=== PATIENT | female | born 2000 | race Caucasian/White ===

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

== ENCOUNTER 2020-06-02 13:09 | Emergency (ER) | payer OTHER, SELFPAY ==
--- NOTE | 2020-06-02 13:49 | RAD ---
2 view chest: [06/02/2020] Comparison:None available HISTORY: Chest pain FINDINGS: Heart and mediastinal contours are grossly unremarkable. No pneumothorax or pleural fluid. No focal consolidation or alveolar edema. IMPRESSION: No acute findings.
== END 2020-06-02 13:50 | disposition home or self-care (01) ==
LOC: BURERS 13:09
DX: S43.402A Unspecified sprain of left shoulder joint, initial encounter (principal); S80.02XA Contusion of left knee, initial encounter; F41.9 Anxiety disorder, unspecified; F32.9 Major depressive disorder, single episode, unspecified; F43.10 Post-traumatic stress disorder, unspecified; V89.2XXA Person injured in unspecified motor-vehicle accident, traffic, initial encounter
CPT/HCPCS: 71046; 99281